=== PATIENT | female | born 1960 | race Caucasian/White ===

== ENCOUNTER 2018-04-08 10:43 | Emergency (ER) | payer OTHER ==
[~2018-04-08] VITALS: Ht 152.4 cm; Wt 44.5 kg
[2018-04-08 12:20] VITALS: BP 143/67
[2018-04-08] MEDS ORDERED: CYCLOBENZAPRINE 10 MG TABLET. PO ONE (12:45)
[2018-04-08] MEDS ORDERED: HYDROcodone/APAP 5/325MG 1 TAB TABLET PO ONE (12:45)
[2018-04-08] MEDS ORDERED: DICL50TA4 PO (13:03)
[2018-04-08] MEDS ORDERED: CYCL10TA2 PO (13:03)
[2018-04-08] MEDS ORDERED: METH4TAB2 PO (13:03)
--- NOTE | 2018-04-08 13:03 | PHYS DOC ---
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 Patient denies falling. Denies any loss of bowel bladder function. Patient states she recently moved from [place] and she usually follows up at the pain clinic in [place]. Review of Systems Review of Systems Constitutional: Denies fever or chills [] : Denies dysuria or hematuria [] Musculoskeletal: Reports low back pain. Integument: Denies rash or skin lesions [] Neurologic: Denies headache, focal weakness or sensory changes [] All other systems were reviewed and found to be within normal limits, except as documented in this note. Current Medications Current Medications Current Medications Medications (Trade) Dose Ordered Sig/Selvin Start Time Stop Time Status Last Admin Dose Admin Acetaminophen/ Hydrocodone Bitart (Lortab 5/325) 2 tab 1X ONCE 04/08/18 12:45 04/08/18 12:46 DC 04/08/18 13:13 2 TAB Cyclobenzaprine HCl (Flexeril) 10 mg 1X ONCE 04/08/18 12:45 04/08/18 12:46 DC 04/08/18 13:13 10 MG Allergies Allergies Allergies Coded Allergies Type Severity Reaction Last Updated Verified No Known Drug Allergies 04/08/18 No Physical Exam Physical Exam Constitutional: Well developed, well nourished, no acute distress, non-toxic appearance. [] Abdomen: Bowel sounds normal, soft, no tenderness, no masses, no pulsatile masses. [] Skin: Warm, dry, no erythema, no rash. [] Back: Diffuse paraspinal muscle tenderness to bilateral lumbar spine worse on the left, no midline lumbar spine tenderness, no CVA tenderness. Positive straight leg raises to the left. Extremities: No tenderness, no cyanosis, no clubbing, ROM intact, no edema. [] Neurologic: Alert and oriented X 3, normal motor function, normal sensory function, no focal deficits noted. [] Psychologic: Affect normal, judgement normal, mood normal. [] Current Patient Data Vital Signs Vital Signs Date Time Temp Pulse Resp B/P (MAP) Pulse Ox O2 Delivery O2 Flow Rate FiO2 04/08/18 13:13 18 98 Room Air 04/08/18 12:20 97.9 62 143/67 (92) 97.9 EKG EKG [] Radiology/Procedures Radiology/Procedures [] Course & Med Decision Making Course & Med Decision Making Pertinent Labs and Imaging studies reviewed. (See chart for details) This is a 58-year-old female patient presenting to the ED today with low back pain no known injury but states she twisted wrong yesterday, likely a muscle strain. Patient was given prescription for diclofenac, cyclobenzaprine and Medrol Dosepak. Provided a pain clinic doctor to follow-up with. She has no cauda equina syndrome symptoms. Staff Physician Addendum: I was working in the ER during the course of this patient's visit. I was available for consultation as needed, but I was not directly involved in the care of this patient. Dragon Disclaimer Dragon Disclaimer This electronic medical record was generated, in whole or in part, using a voice recognition dictation system. Departure Departure Impression: Primary Impression: Acute lumbosacral myofascial strain Disposition: 01 HOME, SELF-CARE Condition: STABLE Referrals: UNKNOWN PCP NAME (PCP) Follow-up in 1-2 weeks JILL SANTOS MD Follow-up in the course of this week Patient Instructions: Lumbosacral Strain Additional Instructions: You were evaluated in the emergency room for lumbosacral strain. Take the prescribed medications as ordered. Follow-up with the provided pain clinic doctor as soon as you can. Apply heat to your back. Scripts Diclofenac Sodium (DICLOFENAC SODIUM) 50 Mg Tablet.dr 1 TAB PO BID, #60 TAB 1 Refill Prov: NICCIAABDIEL OCCUP THER 04/08/18 Methylprednisolone (MEDROL) 4 Mg Tab.ds.pk 1 PKG PO UD, #1 PKG Prov: NICCIAABDIEL OCCUP THER 04/08/18 Cyclobenzaprine Hcl (CYCLOBENZAPRINE HCL) 10 Mg Tablet 1 TAB PO TID, #30 TAB Prov: MUTUNGAABDIEL OCCUP THER 04/08/18 Problem Qualifiers Primary Impression: Acute lumbosacral myofascial strain Encounter type: initial encounter Qualified Codes: S39.012A - Strain of muscle, fascia and tendon of lower back, initial encounter ABDIEL BENJAMIN APRN Apr 08, 2018 13:03 SHELLIE FERNANDES MD Apr 08, 2018 17:01
== END 2018-04-08 13:20 | disposition home or self-care (01) ==
LOC: ER 10:43
DX: S39.012A Strain of muscle, fascia and tendon of lower back, initial encounter (principal); F17.200 Nicotine dependence, unspecified, uncomplicated; Z90.710 Acquired absence of both cervix and uterus; X50.1XXA Overexertion from prolonged static or awkward postures, initial encounter; Y93.E2 Activity, laundry; Y92.89 Other specified places as the place of occurrence of the external cause; Y99.8 Other external cause status
CPT/HCPCS: 99284